=== PATIENT | female | born 1985 | race Caucasian/White ===

== ENCOUNTER 2018-06-19 11:43 | Inpatient (IN) | payer BC ==
[2018-06-19] MEDS ORDERED: Lactated Ringers 1000 ML Bag* 1,000 ML IV ONE (12:30)
--- NOTE | 2018-06-19 12:37 | HP ---
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), asthma Pertinent Past Surgical History: None Pertinent Family History: See Records - breast CA, leukemia, colon CA - Antepartal Records Antepartal Records: Reviewed, Complicated by: - low lying placenta ( resolved 04/03/18) Review of Systems Constitutional: Comfortable CV Complaint: No Respiratory: Shortness of Breath: No Gastrointestinal: No Nausea/Vomiting, Normal Bowel Movement Genitourinary: No Dysuria, No Bleeding, No Leaking Fluid Musculoskeletal: No Complaint, No Epigastric Pain Neurological: No Headache, No Visual Changes Movement: Normal Exam Allergies/Adverse Reactions: Allergies No Known Allergies Allergy (Verified 12/22/15 08:50) T:99.4, P:81, R17, BP: 117/71 - Measurements Height: 5 ft 7 in Weight: 6.455 oz Weight in lbs: 0.939249 Body Mass Index (BMI): 0.0 Pre- Weight: 162 lb Weight Gained This : -161.596 lbs and -0.009 ozs - Exam Breast: Breast Exam Deferred CVA: No CVA Tenderness Extremities: No Edema Heart: Normal Rhythm/Heart Sounds HEENT: No Significant Findings Lungs: Clear Bilaterally Rectal: Rectal Exam Deferred Reflexes: DTR 2+ Thyroid: No Thyromegaly - Abdominal Exam Abdomen Exam: Fundal Height Consistent with Dates - Ultrasound/Biophysical Profile Ultrasound Status: Not Done Targeted Exam Findings Estimated Weight: 8lbs Cervical Exam: 6cm - 6.5, 7cm Effacement: Thin Station: -1 Presenting Part: Vertex Membrane Status: AROM EFM Findings - External Monitor Findings Baseline Heart Rate: 130 External Monitor Findings: Accelerations Present, No Pattern of Variable or Late Decelerations, Variability Moderate, Baseline Stable Contractions: Irregular, Mild, < 45 Seconds Assessment/Plan - Assessment 33 y.o. , 39w3d EGA, Advanced dilation, labor augmentation - Plan Plan: Admit - Anticipate Vaginal Delivery - Date/Time of Admission Date of Admission: 06/19/18 Time of Admission: 12:00
[2018-06-19] MEDS ORDERED: Lactated Ringers 1000 ML Bag* 1,000 ML IV SCH ×2 (13:00→15:00)
[2018-06-19] MEDS ORDERED: OXYTOCIN* 10 UNITS/ML 1 ML VIAL IM ONE (14:09)
[2018-06-19] MEDS ORDERED: Witch Hazel PAD* JAR TOPICAL PRN (14:09)
[2018-06-19] MEDS ORDERED: Acetaminophen TAB* 325 MG PO PRN (14:09)
[2018-06-19] MEDS ORDERED: Glycerin ADULT SUPP PR PRN (14:09)
[2018-06-19] MEDS ORDERED: Dibucaine 1% 28.35 GM TUBE PR PRN (14:09)
--- NOTE | 2018-06-19 14:09 | PROCNOTE ---
[facility] OB: Delivery Note - Delivery A Date of : 06/19/18 Time of : 14:55 Sex: Male Gestational Age in Weeks and Days at Delivery: 39 Weeks and 3 Days Delivery Method: Spontaneous Vaginal Labor: Induced Amniotic Fluid: Clear Estimated Blood Loss: 150 Anesthesia/Analgesia: None Delivered By: Britney Jones - Nursery Level of Nursery: Regular/Bedside - Perineum Perineal Injury: Abrasion Only - Not Repaired Perineal Repair: None - Events Delivery Events of Note: Pitocin Only After Delivery, Precipitous Delivery
[2018-06-19] MEDS: Ibuprofen TAB* 600 MG PO PRN ×2 (14:20→21:30)
[2018-06-19] MEDS ORDERED: Simethicone TAB* 80 MG TAB.CHEW PO SCH (17:30)
[2018-06-19] MEDS: Docusate CAP* 100 MG PO SCH (21:30)
[2018-06-20] MEDS: Ibuprofen TAB* 600 MG PO PRN ×2 (03:47→10:18)
[2018-06-20 06:49] LABS: ABS Basophils 0.1 10^3/ul (0-0.2); ABS Eosinophils 0.1 10^3/ul (0-0.6); ABS Lymphocytes 2.3 10^3/ul (1.0-4.8); ABS Monocytes 1.2 10^3/ul (0-0.8); ABS Neutrophils 7.7 10^3/ul (1.5-7.7); ABS Nucleated RBC 0 10^3/ul; Eosinophil % 1.3 %; Hematocrit 38 % (35-47); Hemoglobin 12.4 g/dl (12.0-16.0); Mean Corpuscular HGB Conc 33 g/dl (31-36); Mean Corpuscular Hemoglobin 29 pg (27-31); Mean Corpuscular Volume 88 fL (80-97); Mean Platelet Volume 9.4 fL (7.4-10.4); Nucleated Red Blood Cells % 0; Platelet Count 260 10^3/ul (150-450); Red Blood Count 4.29 10^6/ul (4.00-5.40); Red Cell Distribution Width 14 % (10.5-15); White Blood Count 11.4 10^3/ul (3.5-10.8)
[2018-06-20] MEDS ORDERED: Ferrous Gluconate TAB* 324 MG TAB PO SCH (09:00)
[2018-06-20] MEDS ORDERED: Pneumococcal *Vac Polyvalent 0.5 ML VIAL IM ONE (09:00)
[2018-06-20] MEDS: Docusate CAP* 100 MG PO SCH ×3 (10:18→20:52)
[2018-06-21 07:56] VITALS: BP 108/57
[2018-06-21] MEDS: Ibuprofen TAB* 600 MG PO PRN ×2 (08:00→14:14)
[2018-06-21] MEDS: Docusate CAP* 100 MG PO SCH ×2 (08:55→14:14)
== END 2018-06-21 15:54 | disposition home or self-care (01) | DRG 560 ==
LOC: MCHOBOUT 11:43 → MCHOB 12:29
PROVIDERS: ADMIT Midwife; ATTEND Midwife
PROC: 10E0XZZ Delivery of Products of Conception, External Approach (ICD-10-PCS; principal; 2018-06-19)
PROC: 10907ZC Drainage of Amniotic Fluid, Therapeutic from Products of Conception, Via Natural or Artificial Opening (ICD-10-PCS; 2018-06-19)
PROC: 3E033VJ Introduction of Other Hormone into Peripheral Vein, Percutaneous Approach (ICD-10-PCS; 2018-06-19)
DX: O98.52 Other viral diseases complicating childbirth (principal); Z37.0 Single live birth; B00.9 Herpesviral infection, unspecified; Z3A.39 39 weeks gestation of pregnancy; O77.0 Labor and delivery complicated by meconium in amniotic fluid; O71.82 Other specified trauma to perineum and vulva; Z23 Encounter for immunization
CPT/HCPCS: 36415; 85025; 90732; A9270-GY; J2590